=== PATIENT | male | born 1975 | race African-American/Black ===

== ENCOUNTER 2017-12-13 09:59 | Emergency (ER) | payer SELFPAY ==
[~2017-12-13] VITALS: Ht 170.2 cm; Wt 72.7 kg
[2017-12-13 10:23] LABS: APPEARANCE CLEAR ((CLEAR)); BILIRUBIN NEGATIVE; BLOOD NEGATIVE; COLOR STRAW ((YELLOW)); GLUCOSE (STRIP) NEGATIVE; KETONES NEGATIVE; LEUKOCYTES NEGATIVE; NITRITE NEGATIVE; PROTEIN (STRIP) NEGATIVE; SPECIFIC GRAVITY 1.012 (1.000-1.030); UCUL ADDED? NO; UROBILINOGEN 0.2 MG/DL (0.2-1.0)
[2017-12-13 10:29] LABS: HEMATOCRIT 42.8 % (38.0-50.0); HEMOGLOBIN 14.9 G/DL (12.5-16.6); MCH 29.9 PG (29.0-34.0); MCHC 34.8 G/DL (30.0-36.0); MCV 85.9 FL (86-99); PLATELET COUNT 266 K/uL (156-360); RBC DIS.WIDTH-SD 43.6 % (39-53); RED BLOOD COUNT 4.98 M/uL (4.00-5.50); WHITE BLOOD COUNT 4.5 K/uL (4.1-10.2)
[2017-12-13 11:45] LABS: ALBUMIN 4.4 G/DL (3.2-4.8); ALKALINE PHOSPHATASE 49 IU/L (3-129); ALT (GPT) 17 IU/L (3-49); AST (GOT) 16 IU/L (2-34); CHLORIDE 105 MEQ/L (99-109); CREATININE 0.9 MG/DL (0.6-1.3); GFR ESTIMATE (CALCULATED) > 59 mL/min/ (58.99-99999); GLUCOSE 92 mg/dL (70-99); LIPASE 9 U/L (1.0-51.0); POTASSIUM 3.9 MEQ/L (3.7-5.4); SODIUM 138 MEQ/L (136-147); TOTAL BILIRUBIN 0.4 MG/DL (0.0-1.0); TOTAL PROTEIN 7.1 G/DL (6.4-8.3); UREA NITROGEN (BUN) 14 mg/dL (9-23)
[2017-12-13 12:21] VITALS: BP 151/98
== END 2017-12-13 12:21 | disposition home or self-care (01) ==
LOC: EME 09:59
DX: R19.7 Diarrhea, unspecified (principal); F17.200 Nicotine dependence, unspecified, uncomplicated
CPT/HCPCS: 80053; 81003; 83690; 85027; 87177; 87493; 87506; 99281; 99284